=== PATIENT | male | born 1965 | race Caucasian/White ===

== ENCOUNTER 2017-06-23 19:06 | Emergency (ER) | payer MEDICAID ==
[~2017-06-23] VITALS: Ht 175.3 cm; Wt 2.5 kg
[2017-06-23 19:32] LABS: ABSOLUTE EOSINOPHILS 0.1 thou/uL (0.0-0.7); ABSOLUTE LYMPHOCYTES 2.5 thou/uL (0.8-5.3); ABSOLUTE MONOCYTES 0.7 thou/uL (0.0-1.2); ABSOLUTE NEUTROPHILS 7.5 thou/uL (1.6-8.1); BASOPHILS 0.4 %; HEMATOCRIT 41.7 % (42.0-52.0); HEMOGLOBIN 14.3 gm/dL (14.0-18.0); LYMPHOCYTES 23.1 %; MCHC 34.3 g/dL (28.0-37.0); MCV 90.2 fL (80.0-100.0); MONOCYTES 6.1 %; NUCLEATED RBCS 0 /100WBC; PLATELET COUNT* 281 thou/uL (150-400); POLYS 69.4 %; RBC 4.62 mil/uL (4.50-6.00); RDW-CV 13.9 % (10.5-14.5); WBC 10.8 thou/uL (4.0-11.0)
[2017-06-23 19:40] LABS: ANION GAP 12 mmol/L (7-16); BUN 12 mg/dL (7-18); CALCIUM 9.5 mg/dL (8.5-10.1); CHLORIDE 101 mmol/L (98-107); CO2 27 mmol/L (21-32); GLUCOSE 109 mg/dL (70-99); POTASSIUM 3.8 mmol/L (3.5-5.1); SODIUM 140 mmol/L (136-145)
[2017-06-23 19:41] LABS: APTT 27.3 Seconds (25.0-31.3); INR 1.1; PROTIME 10.5 Seconds (9.20-11.50)
[2017-06-23 20:00] LABS: ALBUMIN 3.8 g/dL (3.4-5.0); ALKALINE PHOSPHATASE 70 U/L (46-116); CK-MB MASS 1.4 ng/mL (<0.5-3.6); NT-PRO BRAIN NAT PEPTIDE 170 pg/mL (<300); SGOT 30 U/L (15-37); SGPT 40 U/L (30-65); TOTAL BILIRUBIN 0.5 mg/dL (<0.1-1.0); TOTAL PROTEIN 7.2 g/dL (6.4-8.2); TROPONIN-I LEVEL <0.06 ng/mL (<0.06)
[2017-06-23 20:21] LABS: URINE BILIRUBIN NEGATIVE (Negative); URINE BLOOD NEGATIVE (Negative); URINE CLARITY CLEAR; URINE COLOR YELLOW; URINE GLUCOSE-RANDOM NEGATIVE (Negative); URINE KETONES TRACE (Negative); URINE LEUKOCYTES-REFLEX NEGATIVE (Negative); URINE NITRITE-REFLEX NEGATIVE (Negative); URINE PROTEIN NEGATIVE (Negative); URINE UROBILINOGEN 0.2 E.U./dl (0.2-1.0)
[2017-06-23 20:30] LABS: AMP/METHAMP Negative (Negative); BARBITURATES Negative (Negative); BENZODIAZEPINES Negative (Negative); COCAINE Negative (Negative); METHADONE Negative (Negative); OPIATES Negative (Negative); PCP Negative (Negative); THC Negative (Negative)
[2017-06-23 22:37] VITALS: BP 130/72
--- NOTE | 2017-06-24 09:33 | EKG ---
[place] [address] ELECTROCARDIOGRAM REPORT Name: VASHTI JOHNSON Room: [facility]#: [id number] Admission: 06/23/17 Attend Phys: Discharge: 06/23/17 Date of : 69 Report #: [id number] THIS REPORT FOR: //name// [facility] ED Test Date: 2017-06-23 Test Time: 19:10:41 Pat Name: VASHTI JOHNSON Department: Room: Gender: M Client Care Specialist: 9 : 1965 Requested By: Sam Nelson Order Number: [id number] MD: Abilio Foss Measurements Intervals Peculiar Rate: 82 P: 21 WI: 157 QRS: 43 QRSD: 94 T: 39 QT: 361 QTc: 422 Interpretive Statements Sinus rhythm Borderline low voltage, extremity leads ST elev, probable normal early repol pattern Baseline wander in lead(s) V3 No previous ECG available for comparison Electronically Signed On 06-24-2017 9:33:31 CDT by Abilio Foss [email or web address] <ELECTRONICALLY SIGNED> By: Abilio Foss MD, [facility] 06/24/17 0933 09 09 Abilio Foss MD, FAC /EPI
== END 2017-06-23 22:40 | disposition home or self-care (01) ==
LOC: M.ERS 19:06
PROVIDERS: Family Medicine
DX: R41.82 Altered mental status, unspecified (principal); F17.200 Nicotine dependence, unspecified, uncomplicated; Z96.0 Presence of urogenital implants